=== PATIENT | male | born 1985 | race Two or more races ===

== ENCOUNTER 2021-10-14 20:00 | Inpatient (IN) | payer MEDICAID, OTHER ==
[~2021-10-14] VITALS: Ht 180.3 cm; Wt 82.3 kg
[2021-10-15 01:44] LABS: Basophils # (auto) 0 10 ^3/uL (0-0.2); Basophils % (auto) 0.7 % (0.0-2.0); Eosinophils # (auto) 0.2 10 ^3/uL (0-0.8); Eosinophils % (auto) 5.9 % (0.0-7.0); Hematocrit 47.9 % (41.0-53.0); Hemoglobin 16.4 g/dL (13.5-17.5); Lymphocytes # (auto) 1.3 10 ^3/uL (0.4-5.4); Lymphocytes % (auto) 37.5 % (10.0-50.0); Mean Corpuscular Hemoglobin 30.9 pg (28.0-32.0); Mean Corpuscular Hgb Conc. 34.2 g/dL (32.0-36.0); Mean Corpuscular Volume 90.3 fL (80.0-100.0); Monocytes # (auto) 0.5 10 ^3/uL (0-1.3); Monocytes % (auto) 13.7 % (0.0-12.0); Neutrophils # (auto) 1.5 10 ^3/uL (1.6-8.6); Neutrophils % (auto) 42.2 % (37.0-80.0); Nucleated Red Blood Cells % 0.1 %; Red Cell Distribution Width 12.8 % (11.8-14.3); White Blood Cell 3.4 10^3/uL (4.4-10.8)
[2021-10-15 02:07] LABS: Albumin 3.8 g/dL (3.4-5.0); Calcium 8.9 mg/dL (8.5-10.1); Magnesium 2.5 mg/dL (1.6-2.6); Potassium 3.4 mmol/L (3.5-5.1)
[2021-10-15 02:09] LABS: BUN/Creatinine Ratio 12.2
[2021-10-15 02:11] LABS: Bilirubin, Total 0.7 mg/dL (0.2-1.0); Total Protein 7.6 g/dL (6.4-8.2)
[2021-10-15 04:27] LABS: Urine Bacteria NONE SEEN /hpf (None Seen); Urine Blood Negative /uL (Negative); Urine Hyaline Cast MOD /lpf (0 - 2); Urine Mucus FEW (None Seen); Urine Specific Gravity 1.019 (1.001-1.035); Urine WBC 3 /hpf (0 - 3)
[2021-10-15] MEDS ORDERED: MORPHINE SULFATE INJECTION 2 MG/ML SYRG IV PRN (04:30)
[2021-10-15] MEDS ORDERED: ACETAMINOPHEN 325 MG TAB PO PRN (04:30)
[2021-10-15] MEDS ORDERED: NITROGLYCERIN 0.4 MG SL TAB SL PRN (04:30)
[2021-10-15] MEDS ORDERED: ONDANSETRON HCL 4 MG/2 ML VIAL IV PRN (04:30)
[2021-10-15 04:47] LABS: Alcohol, Urine < 3.0 mg/dL (0-10); Amphetamine Screen, Urine POSITIVE (NEGATIVE); Barbiturate Scree,Urine NEGATIVE (NEGATIVE); Benzodiazephine Screen, Urine NEGATIVE (NEGATIVE); Cannabinoid Screen, Urine POSITIVE (NEGATIVE); Cocaine Screen, Urine NEGATIVE (NEGATIVE); Phencyclidine Screen, Urine NEGATIVE (NEGATIVE)
[2021-10-15 04:54] LABS: Opiate Scree,Urine NEGATIVE (NEGATIVE)
[2021-10-15 06:48] VITALS: BP 127/78
[2021-10-15 09:00] VITALS: BP 115/78
[2021-10-15] MEDS: ASPirin 81 mg TAB PO SCH (12:03)
[2021-10-15] MEDS: OLANZapine 5 MG TAB PO SCH ×2 (12:03→22:35)
[2021-10-15] MEDS: ACETAMINOPHEN 325 MG TAB PO PRN (12:26)
[2021-10-15] MEDS ORDERED: POTASSIUM CHL 20 Meq TABLET PO ONE (13:15)
[2021-10-15 13:22] VITALS: BP 125/85
[2021-10-15 21:51] VITALS: BP 107/61
[2021-10-15] MEDS: ATORVASTATIN 20 MG TAB PO SCH (22:34)
[2021-10-15] MEDS: traZODone HCL 50 MG TAB PO SCH (22:36)
[2021-10-15] MEDS: METOPROLOL TARTRATE 25 MG TAB PO SCH (22:37)
[2021-10-16 04:39] VITALS: BP 109/63
[2021-10-16 05:55] LABS: BUN/Creatinine Ratio 16.9; Calcium 8.9 mg/dL (8.5-10.1); Potassium 3.8 mmol/L (3.5-5.1)
[2021-10-16 08:21] VITALS: BP 110/78
[2021-10-16] MEDS: OLANZapine 5 MG TAB PO SCH ×2 (11:11→22:11)
[2021-10-16] MEDS: METOPROLOL TARTRATE 25 MG TAB PO SCH ×2 (11:12→22:00)
[2021-10-16] MEDS: ASPirin 81 mg TAB PO SCH (11:12)
[2021-10-16] MEDS: ACETAMINOPHEN 325 MG TAB PO PRN (11:13)
[2021-10-16 13:00] VITALS: BP 117/66
[2021-10-16 16:50] VITALS: BP 103/70
[2021-10-16 22:00] VITALS: BP 114/58
[2021-10-16] MEDS: ATORVASTATIN 20 MG TAB PO SCH (22:10)
[2021-10-16] MEDS: traZODone HCL 50 MG TAB PO SCH (22:11)
[2021-10-17 04:37] VITALS: BP 114/69
[2021-10-17 05:00] VITALS: BP 115/68
[2021-10-17 09:14] VITALS: BP 98/57
[2021-10-17] MEDS ORDERED: TRAZ100T3 PO (09:51)
[2021-10-17] MEDS ORDERED: OLAN15TA PO (09:51)
[2021-10-17] MEDS: ASPirin 81 mg TAB PO SCH (09:52)
[2021-10-17] MEDS: METOPROLOL TARTRATE 25 MG TAB PO SCH (09:54)
[2021-10-17] MEDS: OLANZapine 5 MG TAB PO SCH (09:54)
[2021-10-17 14:32] VITALS: BP 114/51
[2021-10-17 15:11] VITALS: BP 114/58
== END 2021-10-17 16:15 | disposition home or self-care (01) | DRG 203 ==
LOC: EDBD 20:00 → ER 20:00 → TELE 10-15 03:45 → TELE-WESTW 10-15 06:35
PROVIDERS: ADMIT Nurse Practitioner; ATTEND Family Medicine
DX: R07.89 Other chest pain (principal); E87.6 Hypokalemia; F12.90 Cannabis use, unspecified, uncomplicated; F15.10 Other stimulant abuse, uncomplicated; F20.9 Schizophrenia, unspecified; F31.9 Bipolar disorder, unspecified; G89.4 Chronic pain syndrome; Z20.822 Contact with and (suspected) exposure to COVID-19; I10 Essential (primary) hypertension; F19.10 Other psychoactive substance abuse, uncomplicated; Z59.00 Homelessness unspecified; Z91.51 Personal history of suicidal behavior; Z71.51 Drug abuse counseling and surveillance of drug abuser
CPT/HCPCS: 36415; 71045; 80048; 80053; 80307; 81001; 83735; 83880; 84443; 84484; 85025; 85379; 93005; 93306; G0378